=== PATIENT | male | born 1995 | race Caucasian/White ===

== ENCOUNTER 2016-06-02 10:15 | Day surgery (SDC) | payer OTHER ==
[~2016-06-02 10:15] MED LIST: DEXAMETHASONE SOD PHOS INJ 10 MG/1 ML VIAL ONE; FENTANYL CITRATE INJ/PF 250 MCG/5 ML AMPULE ONE; MIDAZOLAM 2 MG/2 ML INJ ONE; ONDANSETRON HCL INJ/PF 4 MG/2 ML SDV ONE; PROPOFOL INJ 200 MG/20 ML VIAL IV ONE; SUCCINYLCHOLINE CHLORIDE INJ 200 MG/10 ML VIAL ONE
[2016-06-02] MEDS ORDERED: LIDOCAINE 1%/EPINEPHRINE INJ 20 ML VIAL ONE (11:06)
[2016-06-02] MEDS ORDERED: WATER FOR INJECTION,STERILE 10 ML SDV ONE (11:06)
[2016-06-02] MEDS ORDERED: OXYMETAZOLINE HCL 0.05% NASAL SPRAY 15 ML BOTTLE ONE ×2 (11:06→13:17)
[2016-06-02] MEDS ORDERED: DEXAMETHASONE SOD PHOS INJ 10 MG/1 ML VIAL ONE (11:06)
[2016-06-02] MEDS ORDERED: DEXMEDETOMIDINE INJ 80 MCG/20 ML VIAL IV ONE (12:14)
[2016-06-02] MEDS ORDERED: FENTANYL CITRATE INJ/PF 250 MCG/5 ML AMPULE ONE (13:45)
--- NOTE | 2016-06-02 15:53 | [facility]ARE OPERATIVE REPORT E ---
[facility] NAME: PANDA MONTEMAYOR AGE: 20Y DATE OF SURGERY: 06/02/2016 ROOM: PREOPERATIVE DIAGNOSIS: Bilateral pansinusitis with nasal polyposis. POSTOPERATIVE DIAGNOSIS: Bilateral pansinusitis with nasal polyposis. PROCEDURE: 1. Bilateral endoscopic maxillary antrostomies. 2. Bilateral endoscopic complete ethmoidectomies. 3. Bilateral endoscopic sphenoidotomies. 4. Bilateral endoscopic frontal sinusotomies. 5. CT based image guidance for dissection on the orbits and skull base in a case with diffuse frontonasal polyposis. SURGEON: DOE JEAN M.D. ANESTHESIA: General endotracheal. ESTIMATED BLOOD LOSS: 500 mL. COMPLICATIONS: None. FINDINGS: 1. Bilateral diffuse sinonasal polyposis and pansinusitis. 2. Bilateral Cara cells. 3. 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 INDICATIONS FOR PROCEDURE: A 20-year-old male with chronic nasal congestion secondary to sinonasal polyposis that has been refractory to medical management for several years now. Recent visit revealed frontonasal polyposis that encompassed the entire nasal airway. I gave him a preoperative high-dose steroid burst to facilitate surgery today. PROCEDURE IN DETAIL: The patient was met in the preoperative holding area, all questions were answered, consent was verified. He was then brought back to the operating room and placed supine on the operating table, and general endotracheal anesthesia was induced without difficulty. The table was turned and positioned for endoscopic sinus surgery. A zSoup image guidance system headpiece was placed on the forehead and the system was calibrated using a recent CT of the sinuses. Accuracy was verified using external soft tissue landmarks. The nasal cavity was decongested with oxymetazoline and he was prepped and draped in standard fashion. A preoperative time out was performed. The procedure was started with a 0-degree endoscope and 1% lidocaine with 1:100,000 epinephrine was infiltrated along both sides at the axilla of the middle turbinate, body of the middle turbinate, and sphenopalatine foramen region. The right side was approached first. Frontonasal polyps that were in the nasal cavity were removed with a microdebrider and followed to the middle meatus. The right-sided middle turbinate which was a small yao bullosa was medialized and the ethmoid polyposis and the anterior ethmoid polyposis as well as septations of the ethmoid bulla were removed with a powered microdebrider. The uncinate process was identified with some difficulty due to polyps and swelling. A small window was created in the uncinate, allowing me to identify the natural opening of the maxillary sinus. There were 2 Cara cells on each maxillary sinus. These were entered once identified with thru-cutting forceps. The maxillary sinus was enlarged from anterior to posterior with thru-cutting forceps and the sinus contents suctioned or microdebrided. The base of the lamella of the middle turbinate was identified and the posterior ethmoid cavity was entered. A straight curette was used to break up the septations and the polyps which were then removed either with polyp forceps or the powered microdebrider. The sphenoid ostium was then entered with a straight suction and enlarged with a mushroom punch. The superior, lateral, posterior ethmoid cells were then removed with an angled curette and upbiting forceps. The Agger nasi cells were removed by performing a transaxillary approach through the Agger nasi with a Hajek punch. The Agger nasi were curetted from posterior to anterior and removed with polyp forceps. There was fairly significant osteitis and a type 1 frontal cell on the right side. A balloon-assisted frontal sinusotomy was performed by using a frontal balloon, identifying the frontal sinus and confirming with image guidance, and the balloon was inflated serially over the outflow tract. A 30-degree endoscopic visualization and frontal punch were then used to remove the Agger nasi and ethmoid septations to open up an approximately 4-mm frontal sinus opening. The right side was packed with oxymetazoline and the left side was approached in very similar fashion by performing an initial polypectomy and debridement followed by an anterior ethmoidectomy, maxillary antrostomy, posterior ethmoidectomy, and sphenoidotomy in standard fashion. The large left-sided yao bullosa was incised vertically and the medial aspect of the bone was removed posterior over to the basal lamella. The inferior aspect was similarly reduced as it was very unstable up to what essentially amounted to a residual axilla for future landmark guidance. The frontal sinus on the left side was approached similarly with some difficulty given the yao bullosa prominent supraorbital ethmoid cell. The sinus was located and again similarly opened using a balloon-assisted approach with a frontal balloon first and then frontal punches using a 30-degree endoscopic guidance. Both nasal cavities and sinus cavities were irrigated and verified for hemostasis. The nasal cavity and sinuses were suctioned. Propel steroid-eluting stents were placed in each ethmoid cavity under endoscopic visualization. This concluded the procedure. The patient was turned over to the anesthesia team for reversal and extubation. He tolerated the procedure well. DICTATING PHYSICIAN: DOE JEAN M.D. [id number] PHY#: [id number] ID: [id number] JOB#: [id number] ACCT: [id number] cc:DOE JEAN M.D. >
[2016-06-02] MEDS ORDERED: HYDROCODONE/ACETAMINOPHEN 5-325 MG TABLET ONE (16:11)
== END 2016-06-02 16:59 | disposition home or self-care (01) ==
LOC: SC 10:15
PROVIDERS: ATTEND Otolaryngology
PROC: 099Q4ZZ Drainage of Right Maxillary Sinus, Percutaneous Endoscopic Approach (ICD-10-PCS; 2016-06-02)
PROC: 09TV4ZZ Resection of Left Ethmoid Sinus, Percutaneous Endoscopic Approach (ICD-10-PCS; 2016-06-02)
PROC: 09TU4ZZ Resection of Right Ethmoid Sinus, Percutaneous Endoscopic Approach (ICD-10-PCS; 2016-06-02)
PROC: 09BS4ZZ Excision of Right Frontal Sinus, Percutaneous Endoscopic Approach (ICD-10-PCS; 2016-06-02)
PROC: 09BT4ZZ Excision of Left Frontal Sinus, Percutaneous Endoscopic Approach (ICD-10-PCS; 2016-06-02)
PROC: 09CX4ZZ Extirpation of Matter from Left Sphenoid Sinus, Percutaneous Endoscopic Approach (ICD-10-PCS; 2016-06-02)
PROC: 09CW4ZZ Extirpation of Matter from Right Sphenoid Sinus, Percutaneous Endoscopic Approach (ICD-10-PCS; 2016-06-02)
PROC: 099R4ZZ Drainage of Left Maxillary Sinus, Percutaneous Endoscopic Approach (ICD-10-PCS; principal; 2016-06-02 11:15)
DX: J32.4 Chronic pansinusitis (principal); J33.0 Polyp of nasal cavity; Z87.09 Personal history of other diseases of the respiratory system
CPT/HCPCS: 88304 ×2; 31256; 31255; 31276; 31287; C1751; J2250; J3010; J3490 ×3; J0330; J2405; J2704; J1100; 160